=== PATIENT | female | born 1990 | race African-American/Black ===

== ENCOUNTER 2018-08-03 03:36 | Emergency (ER) | payer SELFPAY ==
[~2018-08-03] VITALS: Ht 157.5 cm; Wt 63.5 kg
--- NOTE | 2018-08-03 03:56 | NUR ---
Dr. Hester at bedside for MSE.
[2018-08-03] MEDS ORDERED: predniSONE 50 MG TABLET ONE (04:12)
[2018-08-03] MEDS: predniSONE 50 MG TABLET PO ONE (04:13)
--- NOTE | 2018-08-03 04:14 | NUR ---
Patient discharged to home in stable conditon. Written and verbal after care instructions given. Patient verbalizes understanding of instructions. Patient ambulated out of ER with steady gait, no acute signs of distress, VSS, all belongings taken.
[2018-08-03 04:15] VITALS: BP 115/77
== END 2018-08-03 04:16 | disposition home or self-care (01) ==
LOC: ER 03:37
DX: J20.9 Acute bronchitis, unspecified (principal); Z88.8 Allergy status to other drugs, medicaments and biological substances
CPT/HCPCS: 99283; J7512; A4663